=== PATIENT | female | born 1945 | race Caucasian/White ===

== ENCOUNTER 2016-10-06 16:05 | Inpatient (IN) | payer MEDICARE, OTHER ==
--- NOTE | ~2016-10-06 | CN ---
Consultation Report [facility] [address] [place]. [address] NAME: SHARON KITCHEN : 43 STATUS : ADM IN PAT#: [id number] AGE: 71 ADM/REG DATE : 10/06/16 MR#: [id number] REPORT SERV DATE: 10/06/16 DICTATED BY: DATE: REPORT STATUS : Draft TRANSCRIBED BY: MODL DATE: 10/06/16 CONSULTATION DATE OF CONSULTATION: 10/06/2016 CHIEF COMPLAINT/REASON FOR CONSULT: Elevated cardiac biomarkers. PRIMARY SHOVEL LOADER OPERATOR: Michael Finn M.D. HISTORY OF PRESENT ILLNESS: Ms. Sharon Kitchen is a very pleasant 71-year-old female who was hospitalized at [facility] on 10/04/2016 for a COPD exacerbation. She was being diuresed at their hospital and had a good result going down to her baseline oxygen requirement of 3 L. She stated that while she was hospitalized there. She began to have chest pain. It was 7/10 in intensity. She was given nitroglycerin and her chest discomfort resolved. Her initial cardiac troponin upon entering [facility] was 0.03 and raised to 0.41. She also had EKG changes in the anterolateral leads consistent with ischemia, and she was transferred here for additional evaluation. The patient states that she is always short of breath, so this is not new for her. She had nausea without vomiting. She denies any edema, but states that she is constipated. ALLERGIES: NO KNOWN DRUG ALLERGIES. CURRENT INPATIENT MEDICATIONS: Include: 1. Dulera. 2. DuoNebs. 3. Levaquin. 4. Levemir. 5. Lipitor 40 mg p.o. daily. 6. Lopressor 25 mg p.o. b.i.d. 7. [place]. 8. NovoLog. 9. Ranexa 500 mg p.o. daily. PAST MEDICAL HISTORY: 1. Coronary artery disease, status post PCI to the mid circumflex 08/25/2013. 2. COPD. 3. History of hypokalemia and hyponatremia. 4. Diabetes mellitus. 5. Hypertension. SOCIAL HISTORY: The patient is a former smoker. She quit smoking in August of this year. She does not use alcohol or extracurricular drugs. Consultation Report [facility] [id number] [place]. [address] NAME: SHARON KITCHEN : 43 STATUS : ADM IN PAT#: [id number] AGE: 71 ADM/REG DATE : 10/06/16 MR#: [id number] REPORT SERV DATE: 10/06/16 DICTATED BY: DATE: REPORT STATUS : Draft TRANSCRIBED BY: MODClint DATE: 10/06/16 FAMILY HISTORY: Significant for both mother and father with a known history of coronary artery disease. REVIEW OF SYSTEMS: All systems were reviewed and are negative except for dictated in HPI. PHYSICAL EXAMINATION: VITAL SIGNS: Temperature is 96.8, pulse is 55 to 60, respirations 18, oxygen saturations 94% on 3 L nasal cannula, blood pressures range between 149 to 181 over 65 to 75, weight is 69 kg. GENERAL: Ms. Kitchen is a 71-year-old female. She is currently in no distress. NECK: I could not appreciate jugular venous distention or carotid bruits. HEART: Regular rate and rhythm. Soft S1, S2. I could not appreciate murmurs, rubs, or gallops. LUNGS: Diminished, but there are no wheezes rales or rhonchi. ABDOMEN: Obese and nontender. EXTREMITIES: Jh test via the right wrist notes diminished blood supply to the palm of the hand via the ulnar artery. Femoral pulses are +2 bilaterally. There are no femoral bruits. There is no pitting edema present. Posterior tibial pulses are +2 bilaterally. MUSCULOSKELETAL: I could not appreciate clubbing or cyanosis of the digits. NEUROLOGIC: The patient is a good historian and able to answer all my questions and move all extremities appropriately. DATA: Hemoglobin 11.1, hematocrit 34.3, platelet count 305. Magnesium 2.1. BNP is 257. Troponin is 0.30. TSH is 0.191. An EKG performed on arrival documented T-wave inversions in the inferior, anteroseptal, and anterolateral leads. These are new from her admissions to [facility]. IMPRESSION/REPORT/PLAN: 1. Sbl-YJ-ljancawza myocardial infarction with chest pain, abnormal cardiac biomarkers and EKG changes. 2. History of coronary artery disease, status post PCI in 2013. 3. Hypertension. 4. Hyperlipidemia. 5. Diabetes mellitus. 6. Oxygen-dependent chronic obstructive pulmonary disease, 3 L. RECOMMENDATIONS: 1. We would start heparin via the ACS protocol. 2. I discussed the risks, benefits, and alternatives of cardiac catheterization with the patient who is agreeable to proceed. She does not have any bleeding or surgeries upcoming. 3. Check echocardiogram. 4. Add Imdur. Consultation Report [facility] [address] [place]. [address] NAME: SHARON KITCHEN : 43 STATUS : ADM IN PAT#: [id number] AGE: 71 ADM/REG DATE : 10/06/16 MR#: [id number] REPORT SERV DATE: 10/06/16 DICTATED BY: DATE: REPORT STATUS : Draft TRANSCRIBED BY: MODL DATE: 10/06/16 5. Additional recommendations pending clinical course. [facility]/MODL Maria C Yougn M.D. / [id number] CC: MD Maria C Baires M.D.
--- NOTE | ~2016-10-06 | DS ---
Discharge Summary [facility] [address] [place]. [address] NAME: SHARON MEJIA : 43 STATUS : DIS IN PAT#: [id number] AGE: 71 ADM/REG DATE : 10/06/16 MR#: [id number] REPORT SERV DATE: 10/12/16 DICTATED BY: ADRYAN MURPHY DATE: 10/08/16 REPORT STATUS : Draft TRANSCRIBED BY: MODL DATE: 10/08/16 ADMISSION DATE: 10/06/2016 DISCHARGE DATE: 10/08/2016 CONSULTATION: Cardiology, Dr. Young. PROCEDURE: Left cardiac catheterization. CONCLUSION: 1. Single-vessel coronary artery disease including a 90% stenosis in a very small 1st diagonal branch estimated at 1.5 mm in diameter. 2. Patent site mid-left circumflex. 3. Normal left ventricular systolic function, LV ejection fraction is equal to 0.55. 4. No significant mitral regurgitation. RECOMMENDATIONS: 1. Medical therapy of coronary artery disease. 2. Risk factor modification. 3. PTCA of the first diagonal branch could be considered for refractory angina although this is a very small vessel. DISCHARGE DIAGNOSES: 1. Non-ST elevation myocardial infarction. 2. Chronic respiratory failure, on home O2 at 3 L. 3. Chronic obstructive pulmonary disease. 4. Diabetes mellitus type 2. 5. Hypertension. 6. Depression. 7. Osteoarthritis. 8. History of coronary artery disease with history of PCI in 2013. DISCHARGE CONDITION: Stable. HISTORY OF PRESENT ILLNESS: For detailed HPI, make reference to Dr. Adryan Murphy's dictation on 10/06/2016. In brief, this is a 71-year-old female with medical history of coronary artery disease status post PCI in 2013, COPD on 3 L of oxygen at home, diabetes mellitus type 2 who presented to [facility] on 10/03/2016 with complaints of worsening shortness of breath, found to have COPD exacerbation. The patient received DuoNeb, prednisone, and p.o. antibiotics with significant improvement. On the day of discharge from [facility], the patient was noted to have developed new onset chest pain with elevated troponin and new EKG changes. The patient was subsequently transferred to [facility] for further evaluation. HOSPITAL COURSE: Discharge Summary [facility] [address] [place]. [address] NAME: SHARON MEJIA : 43 STATUS : DIS IN PAT#: [id number] AGE: 71 ADM/REG DATE : 10/06/16 MR#: [id number] REPORT SERV DATE: 10/12/16 DICTATED BY: ADRYAN MURPHY DATE: 10/08/16 REPORT STATUS : Draft TRANSCRIBED BY: RALPH DATE: 10/08/16 1. NSTEMI: The patient was noted to have complaint of chest pain which was relieved with nitroglycerin. Troponin was elevated. EKG showed T-wave inversion from V2 to V6. The patient was started on heparin drip. Cardiology was consulted, recommended to add Imdur to the patient's medication and scheduled the patient for left cardiac catheterization. During the course of this admission, the patient underwent cardiac catheterization, and reports as noted above. Cardiology recommend to optimize the patient's cardiac medications. At the time of discharge, the patient was discharged home on aspirin 81 mg p.o. daily, Imdur 30 mg p.o. daily, metoprolol 25 mg p.o. b.i.d., atorvastatin 40 mg p.o. daily, losartan 100 mg p.o. daily, and Ranexa 1000 mg extended release tab p.o. b.i.d. Cardiology recommended the patient to follow up with primary director of events, Dr. Finn at [facility] in 4 weeks. 2. Chronic respiratory failure due to chronic obstructive pulmonary disease on 3 L of home oxygen. During the course of this admission, no evidence of acute COPD exacerbation noted. The patient received COPD exacerbation treatment at [facility] with IV steroids and p.o. antibiotics with good response. At the time of transfer, the patient's shortness of breath and wheezing almost completely resolved. During the course of this admission, I continued the patient on prednisone and oral antibiotics as well as Duo-Nebs. At the time of discharge, the patient had completed a five-day course treatment of p.o. antibiotics. The patient was discharged home on prednisone taper and recommended to follow up with primary care physician within two to three weeks of discharge. 3. Diabetes mellitus type 2. The patient received subacute insulin during the course of this admission. Blood glucose remained stable. At the time of discharge, the patient was advised to continue oral hypoglycemics. DISCHARGE DISPOSITION: To discharge home. Home health care ordered at the time of discharge. DISCHARGE ACTIVITY: As tolerated. DISCHARGE DIET: ADA 1800 calorie diet. A total of 35 minutes was used to prepare this patient's discharge, reconcile medication, and advised the patient on followup plans. PRATEEKO/RALPH Adryan Murphy MD / [id number] CC: MD Sarabjit Baires M.D. Discharge Summary [address] [address] NAME: SHARON MEJIA : 43 STATUS : DIS IN PAT#: [id number] AGE: 71 ADM/REG DATE : 10/06/16 MR#: [id number] REPORT SERV DATE: 10/12/16 DICTATED BY: ADRYAN MURPHY DATE: 10/08/16 REPORT STATUS : Draft TRANSCRIBED BY: RALPH DATE: 10/08/16 Elizabeth Morrison M.D.
--- NOTE | ~2016-10-06 | HP ---
History And Physical [facility] [address] [place]. [address] NAME: SHARON MEJIA : 43 STATUS : ADM IN PAT#: [id number] AGE: 71 ADM/REG DATE : 10/06/16 MR#: [id number] REPORT SERV DATE: 10/06/16 DICTATED BY: ADRYAN MURPHY DATE: 10/06/16 REPORT STATUS : Draft TRANSCRIBED BY: MODClint DATE: 10/06/16 DATE OF ADMISSION: 10/06/2016 CHIEF COMPLAINT: Chest pain with elevated troponin. This is a direct transfer from [facility]. The patient was transferred due to chest pain, new EKG changes, and elevated troponin to [facility] per Cardiology recommendation. HISTORY OF PRESENT ILLNESS: This is a 71-year-old female with medical history significant for coronary artery disease, status post PCI in 2013, COPD/emphysema, diabetes mellitus type 2 on oral hypoglycemic, who presented to [facility] on 10/03/2016 with a complaint of worsening shortness of breath. The patient was subsequently admitted for COPD exacerbation. The patient was started on DuoNebs, prednisone, and p.o. antibiotics. Per the patient's report, the patient's symptoms significantly improved. On the day of presentation, the patient was being scheduled for possible discharge home when she reported an episode of chest pain. She was given a nitroglycerin pill. An EKG was done at [facility] that shows new T-wave inversion in V2, V3, V4, and V6. A troponin was checked and was reported to be 0.41. [facility] was consulted and recommended the patient to be transferred to [facility] for further evaluation. Of note, the patient reports that she had a PCI placed in 2013. After the PCI, she reports that she was doing very well until about six months ago when she started having chest pain on exertion. 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 Initially, she used to have about two to three episodes a month, but in the last few months, I have noticed that the intensity has continued to get worse. Now, she has some chest pain at least two times a week. She reports that the primary engineer rf deployment was notified about this chest pain several months ago. Beta-travis was increased with some improvement in the chest pain. However, she reports that in the last few weeks, she continued to have worsening chest pain on exertion. She reports that at the hospital she was doing fine until the morning of discharge when she had a similar episode of chest pain and was given nitroglycerin sublingual with significant relief in the chest pain. At the time of presentation, the patient reports that chest pain completely resolved. She denies any palpitation, presyncopal, or syncopal episode. However, she reports some nausea. Denies any vomiting or abdominal pain. Denies any diarrhea or constipation. PAST MEDICAL HISTORY: 1. Diabetes mellitus type 2, on oral hypoglycemics. 2. Coronary artery disease, status post PCI. 3. Osteoarthritis. 4. COPD/emphysema. 5. Hypothyroidism. 6. Depression. 7. Osteoarthritis. PAST SURGICAL HISTORY: History And Physical [address] [address] NAME: SHARON MEJIA : 41 STATUS : ADM IN [facility]#: [id number] AGE: 71 ADM/REG DATE : 10/06/16 MR#: [id number] REPORT SERV DATE: 10/06/16 DICTATED BY: ADRYAN MURPHY DATE: 10/06/16 REPORT STATUS : Draft TRANSCRIBED BY: RALPH DATE: 10/06/16 1. History of right rotator cuff repair. 2. Right ankle surgery. 3. Cholecystectomy. 4. Hysterectomy. FAMILY HISTORY: Mother of [place] at the age of 88. Father of [place] at the age of 51. There is also family history significant for diabetes and hypertension in the family. ALLERGY HISTORY: No known drug allergies. SOCIAL HISTORY: She reports that she quit smoking cigarettes several years ago. Denies drinking alcohol or illicit drug use. Currently lives alone. MEDICATION LIST: 1. DuoNebs every four hours. 2. Aspirin 81 mg p.o. daily. 3. Atorvastatin 40 mg p.o. at bedtime. 4. Symbicort 160/4.5 inhaler two puffs b.i.d. 5. Celexa 20 mg p.o. daily. 6. Nexium 40 mg p.o. daily. 7. [place] 5/325 mg p.o. t.i.d. 8. Levothyroxine 137 mcg tablet p.o. daily. 9. Losartan 100 mg p.o. daily. 10.Meloxicam 15 mg p.o. at bedtime. 11.Glucophage 500 mg p.o. at bedtime. 12.Lopressor tartrate 25 mg p.o. b.i.d. 13.Nitroglycerin 0.4 mg sublingual p.r.n. 14.Promethazine 25 mg tablet every four hours p.r.n. 15.Ranexa 1000 mg p.o. b.i.d. REVIEW OF SYSTEMS: A 12-point review of systems conducted. Positive findings as per HPI. All other systems essentially negative. PHYSICAL EXAMINATION: VITAL SIGNS: On presentation, blood pressure 181/75 mmHg, temperature 36.0, pulse 55 beats per minute, and saturating 94% on 3 L of oxygen. GENERAL: Not in any acute respiratory distress. Wearing oxygen at 3 L. Able to speak in full sentences. HEENT: Normocephalic atraumatic. Extraocular muscles intact. Pupils equal, round, and reactive. NECK: No JVD. Supple. CHEST: Nontender. LUNGS: Mild expiratory wheezes on the apex of the left lung base. No rhonchi. No crackles. ABDOMEN: Bowel sounds normoactive. Soft, nontender. No palpably enlarged organomegaly. EXTREMITIES: Lower extremities, no pedal edema. History And Physical [address] [address] NAME: SHARON MEJIA : 43 STATUS : ADM IN [facility]#: [id number] AGE: 71 ADM/REG DATE : 10/06/16 MR#: [id number] REPORT SERV DATE: 10/06/16 DICTATED BY: ADRYAN MURPHY DATE: 10/06/16 REPORT STATUS : Draft TRANSCRIBED BY: MODClint DATE: 10/06/16 NEUROLOGIC: Alert and oriented x3. Strength in all extremities 5/5. LABORATORY DATA: Per medical record from [facility] 10/06/2016: Troponin is 0.41. BNP 434. Glucose 111. On 10/05/2016, sodium 140, potassium 3.1, chloride 95, bicarb 39, anion gap 9.6, glucose 139, BUN is 13.6, creatinine 0.9. Total protein 7, calcium 8.4, total bilirubin 0.4. WBC 14.8, hemoglobin 11.3, hematocrit 35.5, and platelets 334. ASSESSMENT AND PLAN: 1. Alg-CC-[id number] elevation myocardial infarction/unstable angina. 2. Chronic obstructive pulmonary disease/emphysema. 3. Diabetes mellitus type 2. 4. Hypothyroidism. 5. Depression. Given the patient's presentation of reported chest pain with elevated troponin with new T- wave inversion, I will start the patient on heparin drip at this time. We will repeat EKG. We will repeat the patient's troponin. We will consult the cardiology [facility] team. Dr. Suárez already knew about this patient prior to transfer. Hence, we will contact [facility] team and notify and the patient is currently being admitted. We will also continue the patient's aspirin, continue the patient on Ranexa, beta-travis, as well as nitroglycerin patch. COPD: The patient currently reports significant improvement in shortness of breath. Physical exam, some mild wheezes in the apex of the right lung. We will continue DuoNebs. We will continue the patient on oral prednisone. We will continue the patient on levofloxacin. We will obtain a repeat chest x-ray at this time. Diabetes mellitus: We will place the patient on sliding scale insulin. We will check the patient's HbA1c and had Levemir 8 units at bedtime. Depression: We will recommence the patient's home antidepressants, Celexa 20 mg p.o. daily. Gastroesophageal reflux disease. We will continue the patient's Nexium 40 mg p.o. daily. Hypothyroidism. We will continue the patient's levothyroxine 137 mcg p.o. daily. DVT prophylaxis contraindicated. ADMISSION STATUS: Inpatient. ADMISSION DISPOSITION: Cardiac tele. CODE STATUS: Full code. Consult [facility]. The hospital service will continue to follow this patient as a primary care physician during History And Physical [address] [address] NAME: SHARON MEJIA : 41 STATUS : ADM IN [facility]#: [id number] AGE: 71 ADM/REG DATE : 10/06/16 MR#: [id number] REPORT SERV DATE: 10/06/16 DICTATED BY: ADRYAN MURPHY DATE: 10/06/16 REPORT STATUS : Draft TRANSCRIBED BY: RALPH DATE: 10/06/16 the course of this admission. IOO/MICHELLEL Adryan Murphy MD / [id number] CC: Adryan Murphy MD UNKNOWN
[~2016-10-06 16:05] MED LIST: ASAB PO; AT25 PO; CELEXA20 PO; COREG3 PO; COZAAR100 MG PO; EFFIENT10 PO; LEVOTHYROXIN137 MCG PO; LIPITOR40 PO; NITROSTAT0.4 MG SL; NORV10 PO; NORV5 PO; OXAPROZIN600 MG PO; VICODINTAB PO
[2016-10-06] MEDS ORDERED: RANEXA1000 MG PO (16:59)
[2016-10-06] MEDS ORDERED: MOBIC15 MG PO (16:59)
[2016-10-06] MEDS ORDERED: NEXIUM40 PO (17:00)
[2016-10-06] MEDS ORDERED: NORCO1 TA1 PO (17:00)
[2016-10-06] MEDS ORDERED: PR25 PO (17:00)
[2016-10-06] MEDS ORDERED: LIPITOR40 PO (17:01)
[2016-10-06] MEDS ORDERED: LEVOTHYROXIN137 MCG PO (17:01)
[2016-10-06] MEDS ORDERED: GLUCPH PO (17:02)
[2016-10-06] MEDS ORDERED: COZAAR100 MG PO (17:02)
[2016-10-06] MEDS ORDERED: LOP25 PO (17:02)
[2016-10-06] MEDS ORDERED: CELEXA20 PO (17:02)
[2016-10-06] MEDS ORDERED: SYMBICORT 160/41 INH PO (17:03)
[2016-10-06] MEDS ORDERED: DUONEB INH (17:03)
[2016-10-06] MEDS ORDERED: NITROSTAT0.4 MG SL (17:04)
[2016-10-06] MEDS ORDERED: ASAB PO (17:04)
[2016-10-06 18:30] LABS: BASOPHILS 0 %; EOSINOPHILS 0 %; HEMATOCRIT 34.3 % (36.0-48.0); HEMOGLOBIN 11.1 g/dL (12.0-16.0); IMMATURE GRANULOCYTES 0.3 %; IMMATURE GRANULOCYTES ABSOLUTE 0.03 10/3/uL (0.0-0.11); LYMPHOCYTES 10.1 %; MANUAL DIFF NO %; MEAN CORPUS HGB CONC 32.4 g/dL (32.0-36.0); MEAN CORPUSCULAR HEMOGLOB 28.2 pg (26.0-34.0); MEAN CORPUSCULAR VOLUME 87.3 fL (80-100); MEAN PLATELET VOLUME 10.1 fL (9.2-13.0); MONOCYTES 1.4 %; MONOCYTES ABSOLUTE 0.15 10/3/uL (0.21-1.20); NEUTROPHILS 88.2 %; NEUTROPHILS ABSOLUTE 9.64 10/3/uL (2.02-8.40); PLATELET COUNT 305 10/3/uL (150-400); RBC DISTRIBUTION WIDTH 14.9 % (12.0-16.0); RED CELL COUNT 3.93 10/6/uL (4.0-5.6); WHITE BLOOD CELLS 10.9 10/3/uL (4.5-10.5)
[2016-10-06 18:54] LABS: FREE T4 1.05 NG/DL (0.76-1.46); PHOSPHORUS, SERUM 3.6 MG/DL (2.5-4.5); ULTRASENSITIVE TSH 0.191 MCIU/ML (0.358-3.740)
[2016-10-06 19:06] LABS: TROPONIN I 0.3 NG/ML (<0.05)
[2016-10-06 21:19] LABS: PARTIAL THROMBO TIME 23.8 SEC (22.5-37.2); PROTIME (NOT ORD) 13.3 SEC (12.0-14.5)
[2016-10-07 05:56] LABS: BASOPHILS 0.1 %; BASOPHILS ABSOLUTE 0.01 10/3/uL (0.0-0.16); EOSINOPHILS 0.1 %; EOSINOPHILS ABSOLUTE 0.01 10/3/uL (0.0-0.53); HEMATOCRIT 31.1 % (36.0-48.0); HEMOGLOBIN 10.1 g/dL (12.0-16.0); IMMATURE GRANULOCYTES 0.3 %; IMMATURE GRANULOCYTES ABSOLUTE 0.03 10/3/uL (0.0-0.11); LYMPHOCYTES 29.7 %; LYMPHOCYTES ABSOLUTE 3.39 10/3/uL (0.67-4.30); MEAN CORPUS HGB CONC 32.5 g/dL (32.0-36.0); MEAN CORPUSCULAR HEMOGLOB 28.2 pg (26.0-34.0); MEAN CORPUSCULAR VOLUME 86.9 fL (80-100); MEAN PLATELET VOLUME 10.2 fL (9.2-13.0); MONOCYTES 7.3 %; MONOCYTES ABSOLUTE 0.83 10/3/uL (0.21-1.20); NEUTROPHILS 62.5 %; NEUTROPHILS ABSOLUTE 7.13 10/3/uL (2.02-8.40); PLATELET COUNT 281 10/3/uL (150-400); RBC DISTRIBUTION WIDTH 14.9 % (12.0-16.0); RED CELL COUNT 3.58 10/6/uL (4.0-5.6); WHITE BLOOD CELLS 11.4 10/3/uL (4.5-10.5)
[2016-10-07 05:57] LABS: MANUAL DIFF NO %
[2016-10-07 06:05] LABS: PARTIAL THROMBO TIME 33.1 SEC (22.5-37.2)
[2016-10-07 06:15] LABS: ALBUMIN 2.8 G/DL (3.5-5.0); BUN (BLOOD UREA NITROGEN) 22 MG/DL (6-23); CALCIUM, SERUM 8.3 MG/DL (8.5-10.4); CHLORIDE, SERUM 98 MMOL/L (96-112); CHOL/HDL RATIO(NOT ORDER) 2.5 (0-5); CHOLESTEROL 181 MG/DL (< 200); CO2 (CARBON DIOXIDE) 36 MMOL/L (24-34); CREATININE 0.78 MG/DL (0.55-1.02); GFR AFRICAN AMERICAN 87 ML/MIN (>=60); GFR NON AFRICAN AMERICAN 75 ML/MIN (>=60); GLUCOSE, SERUM 103 MG/DL (60-99); HDL CHOLESTEROL 71 MG/DL (> 49); LDL CHOLESTEROL 85 MG/DL (< 130); NON-HDL CHOLESTEROL 110 MG/DL (< 160); PHOSPHORUS, SERUM 3.1 MG/DL (2.5-4.5); POTASSIUM, SERUM 4.1 MMOL/L (3.5-5.3); SODIUM, SERUM 139 MMOL/L (135-148); TRIGLYCERIDE 127 MG/DL (< 150)
[2016-10-08 05:49] LABS: BASOPHILS 0.1 %; BASOPHILS ABSOLUTE 0.01 10/3/uL (0.0-0.16); EOSINOPHILS 0.1 %; EOSINOPHILS ABSOLUTE 0.01 10/3/uL (0.0-0.53); HEMATOCRIT 29.4 % (36.0-48.0); HEMOGLOBIN 9.6 g/dL (12.0-16.0); IMMATURE GRANULOCYTES 0.2 %; IMMATURE GRANULOCYTES ABSOLUTE 0.02 10/3/uL (0.0-0.11); LYMPHOCYTES ABSOLUTE 3.27 10/3/uL (0.67-4.30); MEAN CORPUS HGB CONC 32.7 g/dL (32.0-36.0); MEAN CORPUSCULAR HEMOGLOB 28.6 pg (26.0-34.0); MEAN CORPUSCULAR VOLUME 87.5 fL (80-100); MEAN PLATELET VOLUME 10.3 fL (9.2-13.0); MONOCYTES 7.8 %; MONOCYTES ABSOLUTE 1.02 10/3/uL (0.21-1.20); NEUTROPHILS 66.8 %; NEUTROPHILS ABSOLUTE 8.75 10/3/uL (2.02-8.40); PLATELET COUNT 249 10/3/uL (150-400); RBC DISTRIBUTION WIDTH 15.3 % (12.0-16.0); RED CELL COUNT 3.36 10/6/uL (4.0-5.6); WHITE BLOOD CELLS 13.1 10/3/uL (4.5-10.5)
[2016-10-08 05:51] LABS: MANUAL DIFF NO %
[2016-10-08 05:59] LABS: ALBUMIN 2.6 G/DL (3.5-5.0); BUN (BLOOD UREA NITROGEN) 22 MG/DL (6-23); CALCIUM, SERUM 8.4 MG/DL (8.5-10.4); CHLORIDE, SERUM 102 MMOL/L (96-112); CO2 (CARBON DIOXIDE) 34 MMOL/L (24-34); CREATININE 0.71 MG/DL (0.55-1.02); GFR AFRICAN AMERICAN 98 ML/MIN (>=60); GFR NON AFRICAN AMERICAN 85 ML/MIN (>=60); PHOSPHORUS, SERUM 3.1 MG/DL (2.5-4.5); POTASSIUM, SERUM 4.2 MMOL/L (3.5-5.3); SODIUM, SERUM 141 MMOL/L (135-148)
[2016-10-08 06:03] LABS: GLUCOSE, SERUM 167 MG/DL (60-99)
[2016-10-08] MEDS ORDERED: IMDUR30 PO (11:44)
[2016-10-08] MEDS ORDERED: P20 (11:49)
== END 2016-10-08 13:45 | disposition home health service (06) | DRG 281 ==
LOC: 5NO 16:05
PROVIDERS: Hospitalist; Internal Medicine
PROC: 4A023N7 Measurement of Cardiac Sampling and Pressure, Left Heart, Percutaneous Approach (ICD-10-PCS; principal; 2016-10-07)
PROC: B2111ZZ Fluoroscopy of Multiple Coronary Arteries using Low Osmolar Contrast (ICD-10-PCS; 2016-10-07)
PROC: B2151ZZ Fluoroscopy of Left Heart using Low Osmolar Contrast (ICD-10-PCS; 2016-10-07)
DX: I21.4 Non-ST elevation (NSTEMI) myocardial infarction (principal); J96.10 Chronic respiratory failure, unspecified whether with hypoxia or hypercapnia; Z99.81 Dependence on supplemental oxygen; J44.9 Chronic obstructive pulmonary disease, unspecified; I10 Essential (primary) hypertension; I25.10 Atherosclerotic heart disease of native coronary artery without angina pectoris; E11.9 Type 2 diabetes mellitus without complications; E03.9 Hypothyroidism, unspecified; Z95.5 Presence of coronary angioplasty implant and graft; E78.5 Hyperlipidemia, unspecified; Z79.84 Long term (current) use of oral hypoglycemic drugs; M19.90 Unspecified osteoarthritis, unspecified site
CPT/HCPCS: 71010; 80061; 80069; 82962; 83735; 83880; 84100; 84439; 84443; 84484; 85025; 85610; 85730; 93005; 93306; 93458; 94640; 97161-GP; 99152; 99153; A9270-GY; C1769; C1887; C1894; C8929; G8978-CJ-GP; G8980-CJ-GP; J2250; J3010; Q9957; Q9967